=== PATIENT | male | born 1965 | race Caucasian/White ===

== ENCOUNTER 2020-03-09 20:17 | Emergency (ER) | payer BC ==
[2020-03-09] MEDS ORDERED: HYDROmorphone 1 MG/ML Syringe IM ONE (20:53)
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
--- NOTE | 2020-03-12 09:26 | CR ---
Clavicle Rt CLINICAL HISTORY: Pain FINDINGS: There is a displaced fracture of the mid clavicle. There are ossific densities contiguous to the clavicle which may be avulsions off the coracoid process. AC joint appears intact. Impression: Comminuted displaced fracture of the mid clavicle with possible avulsion off the coracoid process
== END 2020-03-09 22:16 | disposition home or self-care (01) ==
LOC: JP.ED 20:17
DX: S42.021A Displaced fracture of shaft of right clavicle, initial encounter for closed fracture (principal); Z88.0 Allergy status to penicillin; W17.89XA Other fall from one level to another, initial encounter
CPT/HCPCS: 73000; 96372; 99283; J1170